=== PATIENT | male | born 1985 ===

== ENCOUNTER 2017-08-12 10:33 | Emergency (ER) | payer OTHER ==
[2017-08-12 10:48] VITALS: BP 155/85
== END 2017-08-12 21:30 | disposition left against medical advice (07) ==
LOC: ED 10:33
DX: I10 Essential (primary) hypertension (principal); Z53.21 Procedure and treatment not carried out due to patient leaving prior to being seen by health care provider

== ENCOUNTER 2018-07-08 16:14 | Emergency (ER) | payer BC ==
--- NOTE | 2018-07-08 16:34 | Emergency Department Report ---
Blank Doc - Documentation Documentation: Pt is a 32 y o left sided shoulder to arm numbness and tingling intermittent x , no hx of DM denies CP,sob,dizziness BG check ACC evaluate
--- NOTE | 2018-07-08 17:38 | Emergency Department Report ---
ED General Adult HPI - General Chief complaint: Neuro Symptoms/Deficit Stated complaint: LFT SIDE/TINGLE Time Seen by Provider: 07/08/18 16:29 Source: patient Mode of arrival: Ambulatory Limitations: No Limitations - History of Present Illness Initial comments: There is a 32-year-old -[place] male history of MS who presents for left-sided numbness of her lower extremity 3 days intermittently Number Numbness Radiation Chest and Neck to Left Arm with intermittent dizziness there is no diaphoresis no nausea vomiting no back pain patient remains ambulatory without generalized weaknessand no decrease or loss in bowel or bladder function patient is supposed to give this time to baseline per patient Onset/Timin -: week(s) Location: neck, chest, upper extremity, lower extremity Radiation: extremity Severity scale (0 -10): 5 Quality: other (weakness numbness tingling) Consistency: constant Improves with: none Worsens with: none Associated Symptoms: chest pain, malaise, weakness Treatments Prior to Arrival: none - Related Data Previous Rx's Medication Instructions Recorded Last Taken Type Diclofenac Dr [Voltaren Dr] 75 mg PO TID #90 tablet 07/08/18 Unknown Rx Methocarbamol [Robaxin TAB] 750 mg PO Q8H PRN #90 tablet 07/08/18 Unknown Rx predniSONE [Deltasone] 40 mg PO QDAY 5 Days #10 tab 07/08/18 Unknown Rx Allergies Allergy/AdvReac Type Severity Reaction Status Date / Time No Known Allergies Allergy Verified 07/08/18 16:31 ED Review of Systems ROS: Stated complaint: LFT SIDE/TINGLE Other details as noted in HPI Constitutional: denies: chills, fever Eyes: denies: eye pain, eye discharge, vision change ENT: denies: ear pain, throat pain Respiratory: denies: cough, shortness of breath, wheezing Cardiovascular: chest pain Endocrine: no symptoms reported Gastrointestinal: denies: abdominal pain, nausea, diarrhea Genitourinary: denies: urgency, dysuria Musculoskeletal: denies: back pain, joint swelling, arthralgia Skin: denies: rash, lesions Neurological: headache, weakness, numbness, paresthesias (left side ) Psychiatric: denies: anxiety, depression Hematological/Lymphatic: denies: easy bleeding, easy bruising ED Past Medical Hx - Past Medical History Previous Medical History?: Yes Additional medical history: MS - Social History Smoking Status: Current Some Day Smoker Substance Use Type: Alcohol - Medications Home Medications: Home Medications Medication Instructions Recorded Confirmed Last Taken Type Diclofenac Dr [Voltaren Dr] 75 mg PO TID #90 tablet 07/08/18 Unknown Rx Methocarbamol [Robaxin TAB] 750 mg PO Q8H PRN #90 tablet 07/08/18 Unknown Rx predniSONE [Deltasone] 40 mg PO QDAY 5 Days #10 tab 07/08/18 Unknown Rx ED Physical Exam - General Limitations: No Limitations General appearance: alert, in no apparent distress - Head Head exam: Present: atraumatic, normocephalic - Eye Eye exam: Present: normal appearance, PERRL, EOMI Pupils: Present: normal accommodation - ENT ENT exam: Present: normal orophraynx, mucous membranes moist, TM's normal bilaterally, normal external ear exam - Neck Neck exam: Present: normal inspection, tenderness (left lateral posterior neck pain to deep palpation), full ROM. Absent: lymphadenopathy, thyromegaly - Expanded Neck Exam Expanded Neck exam: Present: tenderness. Absent: midline deformity, anterior neck swelling, thyroid mass, carotid bruit, tracheal deviation - Respiratory Respiratory exam: Present: normal lung sounds bilaterally, chest wall tenderness (left lateral chest wall tendernest to deep palpation). Absent: respiratory distress, wheezes, stridor - Cardiovascular Cardiovascular Exam: Present: regular rate, normal heart sounds - GI/Abdominal GI/Abdominal exam: Present: soft, normal bowel sounds. Absent: distended, tenderness, guarding, rebound, rigid, bruit, hernia - Rectal Rectal exam: Present: deferred - Extremities Exam Extremities exam: Present: full ROM, normal capillary refill. Absent: pedal edema, joint swelling, calf tenderness - Expanded Upper Extremity Exam Left Shoulder Exam: Present: full ROM. Absent: tenderness, swelling, ecchymosis, tenderness over AC joint Upper Arm exam: Present: normal inspection, full ROM. Absent: swelling Elbow exam: Present: normal inspection. Absent: tenderness, swelling Forearm Wrist exam: Present: normal inspection. Absent: tenderness, swelling Hand Wrist exam: Present: normal inspection, full ROM. Absent: tenderness, swelling, abrasion Neuro motor exam: Present: wrist extension intact, thumb opposition intact, thumb IP flexion intact, thumb adduction intact, fingers 2-5 abduction intact Neurosensory exam: Present: 2-point discrimination, radial nerve intact, median nerve intact Vascular: Present: vascular compromise, normal capillary refill, radial pulse, brachial pulse, ulnar pulse. Absent: pulse deficit radial art, pulse deficit ulnar art, pulse deficit brachial art - Expanded Lower Extremity Exam Left Hip exam: Present: full ROM, tenderness. Absent: swelling Upper Leg exam: Present: full ROM, tenderness. Absent: swelling Knee exam: Present: full ROM. Absent: swelling Lower Leg exam: Present: normal inspection, full ROM. Absent: tenderness Ankle exam: Present: normal inspection, full ROM. Absent: tenderness Foot/Toe exam: Present: normal inspection, full ROM. Absent: tenderness Neuro vascular tendon exam: Present: no vascular compromise, abnormal cap refill. Absent: motor deficit, sensory deficit, tendon deficit, extremity cold to touch, pallor, abnormal 2-point discrimination, decreased fine/light touch, foot drop, peroneal nerve deficit, significant pain with passive ROM of distal joint Gait: Positive: observed and normal - Back Exam Back exam: Present: normal inspection, full ROM. Absent: tenderness, CVA tenderness (R), CVA tenderness (L), muscle spasm, paraspinal tenderness, vertebral tenderness, rash noted - Neurological Exam Neurological exam: Present: alert, oriented X3, CN II-XII intact, normal gait, motor sensory deficit, reflexes normal - Psychiatric Psychiatric exam: Present: normal affect, normal mood. Absent: depressed - Skin Skin exam: Present: warm, dry, intact, normal color. Absent: rash ED Course Vital Signs 07/08/18 16:31 Temperature 97.9 F Pulse Rate 71 Respiratory 20 Rate Blood Pressure 133/79 O2 Sat by Pulse 98 Oximetry ED Medical Decision Making - Lab Data Result diagrams: 07/08/18 17:31 07/08/18 17:31 Labs 07/08/18 07/08/18 17:31 17:31 WBC 9.3 RBC 5.13 H Hgb 14.8 Hct 44.5 MCV 87 MCH 29 MCHC 33 RDW 14.2 Plt Count 212 Lymph % (Auto) 22.5 Collin % (Auto) 7.3 Eos % (Auto) 1.6 Baso % (Auto) 0.8 Lymph # 2.1 Collin # 0.7 Eos # 0.1 Baso # 0.1 Seg Neutrophils % 67.8 Seg Neutrophils # 6.3 Sodium 140 Potassium 3.8 Chloride 100.2 Carbon Dioxide 29 Anion Gap 15 BUN 10 Creatinine 0.9 Estimated GFR > 60 BUN/Creatinine Ratio 11 Glucose 87 Calcium 9.2 Total Bilirubin 0.70 AST 27 ALT 24 Alkaline Phosphatase 50 Troponin T < 0.010 Total Protein 7.1 Albumin 4.4 Albumin/Globulin Ratio 1.6 - EKG Data EKG shows normal: sinus rhythm, axis, intervals, QRS complexes, ST-T waves Rate: normal - EKG Data Interpretation: normal EKG (ekg interp by ed attending NSR no ST elevation no ectopy ) - Radiology Data Radiology results: report reviewed, image reviewed cc: CHASE MART NP PROCEDURE: CT HEAD/BRAIN WO CON TECHNIQUE: Axial helical imaging through the skull base to the vertex. HISTORY: left side weakness numbness COMPARISONS: None FINDINGS: There is no evidence of an acute intracranial process, intracranial hemorrhage or mass effect. The ventricles are normal size. The visualized portions of the orbits, paranasal and mastoid sinuses are un remarkable. The bony structures are unremarkable. IMPRESSION: 1. No evidence of an acute intracranial process, intracranial hemorrhage or mass effect. If there is a clinical suspicion of an acute intracranial process, MRI of the brain may be helpful. This document is electronically signed by Jayde Gandhi MD., July 08 2018 06:13:44 PM ET Transcribed By: ED Dictated By: JAYDE GANDHI MD Electronically Authenticated By: JAYDE GANDHI MD Signed Date/Time: 07/08/181814 DD/ 49 TD/TT: 07/08/181749 cc: CHASE MART NP Fluoro Time In Minutes: PROCEDURE: XR CHEST ROUTINE 2V TECHNIQUE: PA and lateral views of the chest HISTORY: weakness COMPARISONS: None FINDINGS: There is no evidence of infiltrate, pneumothorax or pleural fluid collection. The cardiac silhouette is enlarged. The thoracic aorta and bony structures are unremarkable. IMPRESSION: 1. No evidence of an acute pulmonary process. 2. Enlarged cardiac silhouette. This document is electronically signed by Jayde Gandhi MD., July 08 2018 06:31:33 PM ET Transcribed By: ED Dictated By: JAYDE GANDHI MD Electronically Authenticated By: JAYDE GANDHI MD Signed Date/Time: 07/08/18 183 DD/ 99 TD/TT: 07/08/181799 cc: CHASE MART NP PROCEDURE: CT CERVICAL SPINE WO CON TECHNIQUE: Axial helical imaging through the cervical spine with sagittal and coronal reformatted images obtained. HISTORY: left side weakness numbness COMPARISONS: None FINDINGS: Visualization of detail in portions of the cervical spine is limited by artifact created by large body habitus. Bony alignment is normal. The vertebral heights are maintained. There is loss of height of the disc spaces throughout the cervical spine with relative sparing of the C2-C3 and C7-T1 discs. Visualization of detail of the contents of the cervical canal is significantly limited by artifact. There is no evidence of fracture or subluxation. The paraspinous soft tissues are unremarkable. IMPRESSION: 1. Visualization of detail in portions of the cervical spine is limited by artifact created by large body habitus. 2. No evidence of fracture or subluxation. 3. Cervical spondylosis. If the patient remains symptomatic, MRI may be helpful for further evaluation. This document is electronically signed by Jayde Gandhi MD., July 08 2018 06:20:06 PM ET Transcribed By: ED Dictated By: JAYDE GANDHI MD Electronically Authenticated By: JAYDE GANDHI MD Signed Date/Time: 07/08/181821 DD/ 50 TD/TT: 07/08/181750 - Medical Decision Making This is cervical radiculapathy plan, diclofenac , prednisone, Methocarbimol follow up with neurology and orthopedics in 2-3 days, pt verbalized agreement and understanding of discharge plan. Critical care attestation.: If time is entered above; I have spent that time in minutes in the direct care of this critically ill patient, excluding procedure time. ED Disposition Clinical Impression: Cervical radiculopathy Disposition: -01 TO HOME OR SELFCARE Is pt being admited?: No Does the pt Need Aspirin: No Condition: Stable Instructions: Cervical Radiculopathy (ED) Prescriptions: predniSONE [Deltasone] 40 mg PO QDAY 5 Days #10 tab Methocarbamol [Robaxin TAB] 750 mg PO Q8H PRN #90 tablet PRN Reason: pain Diclofenac [Jonathan Phan] 75 mg PO TID #90 tablet Referrals: [facility] MD RONALD [Primary Care Provider] - 3-5 Days RIMMA CERVANTES MD [Staff Physician] - 3-5 Days LINDA STERN DO [Staff Physician] - 3-5 Days Forms: Work/School Release Form(ED) Time of Disposition: 20:03
[2018-07-08 17:44] LABS: Basophils # (Auto) 0.1 K/mm3 (0.0-0.1); Basophils % (Auto) 0.8 % (0.0-1.8); Eosinophils # (Auto) 0.1 K/mm3 (0.0-0.4); Eosinophils % (Auto) 1.6 % (0.0-4.3); Hematocrit 44.5 % (35.5-45.6); Hemoglobin 14.8 gm/dl (11.8-15.2); Lymphocytes # (Auto) 2.1 K/mm3 (1.2-5.4); Lymphocytes % (Auto) 22.5 % (13.4-35.0); Mean Corpuscular HGB Conc 33 % (32-34); Mean Corpuscular Volume 87 fl (84-94); Monocytes # (Auto) 0.7 K/mm3 (0.0-0.8); Monocytes % (Auto) 7.3 % (0.0-7.3); Platelet Count 212 K/mm3 (140-440); Red Blood Count 5.13 M/mm3 (3.65-5.03); Red Cell Distribution Width 14.2 % (13.2-15.2)
[2018-07-08 18:00] LABS: Alanine Aminotransferase 24 units/L (7-56); Albumin 4.4 g/dL (3.9-5); BUN/Creatinine Ratio 11; Blood Urea Nitrogen 10 mg/dL (9-20); Calcium 9.2 mg/dL (8.4-10.2); Hemolysis Index 14
--- NOTE | 2018-07-08 18:15 | Cat Scan Report ---
PROCEDURE: CT HEAD/BRAIN WO CON TECHNIQUE: Axial helical imaging through the skull base to the vertex. HISTORY: left side weakness numbness COMPARISONS: None FINDINGS: There is no evidence of an acute intracranial process, intracranial hemorrhage or mass effect. The ventricles are normal size. The visualized portions of the orbits, paranasal and mastoid sinuses are unremarkable. The bony structures are unremarkable. IMPRESSION: 1. No evidence of an acute intracranial process, intracranial hemorrhage or mass effect. If there is a clinical suspicion of an acute intracranial process, MRI of the brain may be helpful. This document is electronically signed by Jayde Gandhi MD., July 08 2018 06:13:44 PM ET
--- NOTE | 2018-07-08 18:22 | Cat Scan Report ---
PROCEDURE: CT CERVICAL SPINE WO CON TECHNIQUE: Axial helical imaging through the cervical spine with sagittal and coronal reformatted im ages obtained. HISTORY: left side weakness numbness COMPARISONS: None FINDINGS: Visualization of detail in portions of the cervical spine is limited by artifact created by large bod y habitus. Bony alignment is normal. The vertebral heights are maintained. There is loss of height of the disc spaces throughout the cervical spine with relative sparing of the C2-C3 and C7-T1 discs. Visualization of detail of the contents of the cervical canal is significantly limited by artifact. There is no evidence of fracture or subluxation. The paraspinous soft tissues are unremarkable. IMPRESSION: 1. Visualization of detail in portions of the cervical spine is limited by artifact created by large body habitus. 2. No evidence of fracture or subluxation. 3. Cervical spondylosis. If the patient remains symptomatic, MRI may be helpful for further evaluation. This document is electronically signed by Jayde Gandhi MD., July 08 2018 06:20:06 PM ET
--- NOTE | 2018-07-08 18:33 | XRay Report ---
PROCEDURE: XR CHEST ROUTINE 2V TECHNIQUE: PA and lateral views of the chest HISTORY: weakness COMPARISONS: None FINDINGS: There is no evidence of infiltrate, pneumothorax or pleural fluid collection. The cardiac silhouette is enlarged. The thoracic aorta and bony structures are unremarkable. IMPRESSION: 1. No evidence of an acute pulmonary process. 2. Enlarged cardiac silhouette. This document is electronically signed by Jayde Gandhi MD., July 08 2018 06:31:33 PM ET
[2018-07-08] MEDS ORDERED: TORADOL IM ONE (19:53)
[2018-07-08] MEDS ORDERED: FLEXERIL PO ONE (19:53)
[2018-07-08] MEDS ORDERED: DECADRON IM ONE (19:53)
[2018-07-08 20:23] VITALS: BP 126/72
== END 2018-07-08 20:20 | disposition home or self-care (01) ==
LOC: ED 16:14
DX: M54.12 Radiculopathy, cervical region (principal); F17.200 Nicotine dependence, unspecified, uncomplicated
CPT/HCPCS: 36415; 70450; 71046; 72125; 80053; 84484; 85025; 93005; 93010; 96372; 99284; J1100; J1885